=== PATIENT | female | born 1955 | race Caucasian/White ===

== ENCOUNTER 2016-11-05 21:03 | Emergency (ER) | payer BC ==
[~2016-11-05] VITALS: Ht 157.5 cm; Wt 110.4 kg
[~2016-11-05 21:03] MED LIST: ACET-1256 PO; ADVIN10/60 INH; ALBU1AER9 INH; AMOX500C3 PO; ASPEC81 PO; CALC-393 PO; CHOL100010 PO; CLC100 PO; GABA-112 PO; METO25TA56 PO; MISCCAP80 PO; MULTCHW PO; OXYSR10 PO; RXC5 PO; SNK PO; SYN175 PO; TROL10LO TOP
[2016-11-05 21:10] VITALS: TEMP 36.9; Ht 157.5 cm; Wt 110.4 kg
[2016-11-05] MEDS ORDERED: MoRPHine SULFATE 4 MG/ML 1 ML CARP\\VIAL IM STA (21:30)
--- NOTE | 2016-11-05 22:08 | DIAGNOSTIC IMAGING REPORT ---
LUMBAR SPINE 2 OR 3 VIEWS CLINICAL HISTORY: lower back pain s/p fall trauma COMPARISON STUDY: None FINDINGS: Findings consistent with a combination of degenerative and postoperative change. Findings of posterior laminectomy and fusion from L3 through L5. Degenerative disc changes throughout. No evidence for compression deformity. IMPRESSION: No acute bony abnormality. Degenerative and postoperative change The above report was generated using voice recognition software. It may contain grammatical, syntax or spelling errors. Electronically signed by: Joseph Goldman M.D. 11/05/2016 10:06 PM Dictated Date/Time: 11/05/2016 10:06 PM
--- NOTE | 2016-11-05 22:09 | DIAGNOSTIC IMAGING REPORT ---
PELVIS 1 OR 2 VIEW ROUTINE CLINICAL HISTORY: b/l hip pain pain COMPARISON: . Trauma. DISCUSSION: The bones and joint spaces appear intact. There is no evidence of fracture, dislocation or bony disease. There is no evidence for soft tissue swelling. IMPRESSION: No acute process. Degenerative and postoperative change. The above report was generated using voice recognition software. It may contain grammatical, syntax or spelling errors. Electronically signed by: Joseph Goldman M.D. 11/05/2016 10:07 PM Dictated Date/Time: 11/05/2016 10:07 PM
--- NOTE | 2016-11-05 22:09 | DIAGNOSTIC IMAGING REPORT ---
SACRUM COCCYX MIN 2 VIEWS CLINICAL HISTORY: fall trauma COMPARISON STUDY: None FINDINGS: Moderate degenerative change sacroiliac joints. No acute posttraumatic deformity or fracture right sacral foramina are symmetric. IMPRESSION: No acute process. Moderate degenerative change. The above report was generated using voice recognition software. It may contain grammatical, syntax or spelling errors. Electronically signed by: Joseph Goldman M.D. 11/05/2016 10:08 PM Dictated Date/Time: 11/05/2016 10:08 PM
[2016-11-05] MEDS ORDERED: ALBU18002 INH (22:51)
[2016-11-05] MEDS ORDERED: CHOL1000 PO (22:54)
[2016-11-05] MEDS ORDERED: CHOLTAB11 PO (22:54)
[2016-11-05] MEDS ORDERED: DOCU-94 PO (22:55)
[2016-11-05] MEDS ORDERED: ADVIN10/60 INH (22:56)
[2016-11-05] MEDS ORDERED: LEVO175T PO (22:58)
[2016-11-05] MEDS ORDERED: LEVO25TA5 PO (22:58)
[2016-11-05] MEDS ORDERED: VLT/50 PO (23:04)
[2016-11-05] MEDS ORDERED: DICL1GEL12 TOP (23:04)
[2016-11-06 01:01] VITALS: BP 123/93; PULSE 90; O2SAT 94
--- NOTE | 2016-11-06 01:25 | EMERGENCY ROOM VISIT NOTE ---
History Report prepared by Beto[place]marlin: Linda Ricks Under the Supervision of: Dr. Nino Fortune D.O. First contact with patient: 21:16 Chief Complaint: FALL Stated Complaint: FALL, TAILBONE PAIN/NUMBNESS IN BACKSIDE AND LEGS History of Present Illness The patient is a 61 year old female who presents to the Emergency Room with complaints of a fall that occurred yesterday around 1730. She reports she fell to the ground yesterday while trying to clean her porch, and landed on her buttocks, hitting her tailbone, right shoulder, right hip and bilateral knees. She also complains of some back pain, but notes she has a history of spinal fusion in 2010 and has undergone 2 knee replacements in the past. She denies hitting her head or losing consciousness. She notes she does have increased numbness around her knees. She notes that she gets this intermittently off and on secondary to her neuropathy and previous knee surgeries. She notes that it worsened following the fall but currently is at baseline. The patient also denies any headache, change in vision, fevers, chest pain, shortness of breath, nausea, vomiting, diarrhea, pain with urination, and melena. Source of History: patient Onset: 1729 yesterday Position: other (global) Quality: other (fall) Timing: resolved Associated Symptoms: + back pain, No LOC, No fevers, No headache, No chest pain, No SOB, No nausea, No vomiting, No melena, No diarrhea, No urinary symptoms Review of Systems See HPI for pertinent positives & negatives. A total of 10 systems reviewed and were otherwise negative. Past Medical & Surgical Medical Problems: (1) DJD (degenerative joint disease) (2) High cholesterol (3) History of migraine headaches (4) History of palpitations (5) HTN (hypertension) (6) Hypothyroidism (7) Neuropathy (8) Spinal stenosis Surgical Problems: (1) H/O cardiac catheterization (2) H/O umbilical hernia repair (3) H/O: (4) History of tubal ligation (5) Hx of cholecystectomy (6) S/P TKR (total knee replacement) (7) Status post lumbar spinal fusion Social History Smoking Status: Never Smoker Alcohol Use: none Drug Use: none Marital Status: Housing Status: lives with significant other Occupation Status: employed Current/Historical Medications Scheduled Amoxicillin (Amoxil), 2,000 MG PO UD Calcium Carbonate (Calcium), 600 MG PO QAM Cholecalciferol (D-5000), 1 TAB PO DAILY Cholecalciferol (Vitamin D3), 1,000 UNIT PO DAILY Fluticasone Prop/Salmeterol (Advair Diskus 100/50 60 Dose), 1 PUFF INH BID Gabapentin (Neurontin), 100 MG PO BID Levothyroxine Sodium (Synthroid), 175 MCG PO DAILY Levothyroxine Sodium (Levothyroxine Sodium), 25 MCG PO DAILY Metoprolol Tartrate (Lopressor) (Lopressor), 25 MG PO BID Multiple Vitamins W/ Minerals (Centrum Silver), 1 TAB PO QAM Scheduled PRN Acetaminophen (Tylenol), 1,000 MG PO TID PRN for RN Albuterol Sulfate (Proair Respiclick), 2 PUFFS INH QID PRN for SOB/Wheezing Diclofenac Sod (Voltaren), 50 MG PO TID PRN for Pain Diclofenac Sodium (Topical) (Voltaren 1% Top Gel), 1 APPLN TOP DAILY PRN for Pain Docusate Sodium (Colace), 100-300 MG PO DAILY PRN for Constipation Trolamine Salicylate (Aspercreme), 1 DOSE TOP DAILY PRN for Pain Allergies Coded Allergies: Sulfa Antibiotics (Verified Allergy, Mild, N/V, DIZZY, OUT OF IT, PHOTOPHOBIA, 10/06/15) Adhesives (Unverified Allergy, Unknown, REDNESS FROM BANDAIDS, 10/06/15) Statins (Unverified Allergy, Unknown, MUSCLE ACHES, 10/06/15) Ciprofloxacin (Unverified Adverse Reaction, Severe, vomited, 11/05/16) Hydrocodone (Verified Adverse Reaction, Mild, Nausea/vomiting, 10/06/15) Physical Exam Vital Signs Date Time Temp Pulse Resp B/P (MAP) Pulse Ox O2 Delivery O2 Flow Rate FiO2 11/06/16 01:01 90 20 123/93 94 11/05/16 22:51 93 18 133/84 94 Room Air 11/05/16 21:10 36.9 85 18 159/84 96 Room Air Physical Exam GENERAL: Patient is alert, well appearing, well nourished, no distress, non- toxic EYE EXAM: normal conjunctiva, PERRL and EOM's grossly intact OROPHARYNX: no exudate, no erythema, lips, buccal mucosa, and tongue normal and mucous membranes are moist NECK: supple, no nuchal rigidity, no adenopathy, non-tender LUNGS: Clear to auscultation. Normal chest wall mechanics BACK: Old lower lumbar scar with tenderness on palpation paraspinally and midline, tracking through the SI joints, bilateral gluteus muscles and bilateral hips. HEART: no murmurs, S1 normal and S2 normal ABDOMEN: abdomen soft, non-tender, normo-active bowel sounds, no masses, no rebound or guarding. BACK: Back is symmetrical on inspection and there is no deformity, no midline tenderness, no CVA tenderness. SKIN: no rashes and no bruising UPPER EXTREMITIES: upper extremities are grossly normal. LOWER EXTREMITIES: Flexion, extension of hip, knee, ankle and EHL 5/5 bilaterally, gross sensation intact, able to ambulate without difficulty. No pitting edema. NEURO EXAM: Normal sensorium, cranial nerves II-XII grossly intact, normal speech, no gross weakness of arms, no weakness of legs. No drift. Finger to nose intact. Gross sensation intact. Medical Decision & Procedures ER Provider Diagnostic Interpretation: Radiology results as stated below per my review and the radiologist's interpretation: SACRUM COCCYX MIN 2 VIEWS CLINICAL HISTORY: fall trauma COMPARISON STUDY: None FINDINGS: Moderate degenerative change sacroiliac joints. No acute posttraumatic deformity or fracture right sacral foramina are symmetric. IMPRESSION: No acute process. Moderate degenerative change. The above report was generated using voice recognition software. It may contain grammatical, syntax or spelling errors. Electronically signed by: Joseph Goldman M.D. 11/05/2016 10:08 PM LUMBAR SPINE 2 OR 3 VIEWS CLINICAL HISTORY: lower back pain s/p fall trauma COMPARISON STUDY: None FINDINGS: Findings consistent with a combination of degenerative and postoperative change. Findings of posterior laminectomy and fusion from L3 through L5. Degenerative disc changes throughout. No evidence for compression deformity. IMPRESSION: No acute bony abnormality. Degenerative and postoperative change The above report was generated using voice recognition software. It may contain grammatical, syntax or spelling errors. Electronically signed by: Joseph Goldman M.D. 11/05/2016 10:06 PM PELVIS 1 OR 2 VIEW ROUTINE CLINICAL HISTORY: b/l hip pain pain COMPARISON: . Trauma. DISCUSSION: The bones and joint spaces appear intact. There is no evidence of fracture, dislocation or bony disease. There is no evidence for soft tissue swelling. IMPRESSION: No acute process. Degenerative and postoperative change. The above report was generated using voice recognition software. It may contain grammatical, syntax or spelling errors. Electronically signed by: Joseph Goldman M.D. 11/05/2016 10:07 PM MRI L SPINE : Posterior fusion and intervertebral disc spacers L3-L5 and laminectomies at L3 and L4. Evaluation somewhat limited by hardware artifact. No evidence of acute fracture. T10-11 and T11-T12, small posterior disc bulges cause mild canal narrowing. T12- L1, posterior disc extrusion causes wqpw-ar-fjliqhgh canal narrowing. Axial images do not include these levels, limiting evaluation. L1-L2, posterior disc extrusion and facet arthropathy/ligamentous hypertrophy causes mild-tomoderate canal narrowing and mild bilateral foraminal narrowing. L2-L3, small posterior disc extrusion and facet arthropathy cause mild canal narrowing. L3-L4, no canal or foraminal stenosis. L4-L5, no canal or foraminal stenosis. L5-S1, disc osteophyte complex causes [id number]-vwhziybq foraminal narrowings. Radiologist: Benjy Ordonez MD Medications Administered Medications (Trade) Dose Ordered Sig/Ethel Route Start Time Stop Time Status Last Admin Dose Admin Morphine Sulfate (MoRPHine SULFATE INJ) 4 mg NOW STAT IM 11/05/16 21:30 11/05/16 21:33 DC 11/05/16 21:38 4 MG ED Course ED COURSE: Vital signs were reviewed and showed the patient is hypertensive. The patients medical record was reviewed The above diagnostic studies were performed and reviewed. ED treatments and interventions as stated above. 2121: The patient was evaluated in room C7. A complete history and physical examination was performed. 2130: Morphine Sulfate 4 mg IM. 0050: I discussed the patients MRI with the Stat Rad Radiologist. They note the MRI findings do not appear to be anything acute. 0055: Upon reevaluation, the patient is feeling better. I discussed my findings with the patient and she understands and agrees with the treatment plan. Based on the patients age, coexisting illnesses, exam and lab findings the decision to treat as an outpatient was made. The patient remained stable while under my care. The patient appeared well at the time of discharge. Medical Decision Medication Reconciliation: I attest that I have personally reviewed the patient' s current medication list. GCS of 15. Blood pressure screening: Patient was found to have an elevated blood pressure and was referred to their primary doctor for recheck and further treatment. Differential diagnoses include major intracranial, cervical, spinal, thoracic, abdominal, pelvic and neurologic injury. Fracture, contusion, sprain, strain, laceration, abrasions included as well. Patient is a 61-year-old female who presents the ER following a fall for lower back pain along with lateral hip pain. X-rays of her pelvis and lumbar were negative. She complained of intermittent worsening numbness around her knees which she notes has been present for years. She notes that it is currently at baseline. MRI was ordered with the fall and possible worsening numbness although difficult historian. MRI as discussed with the radiologist shows no acute pathology to suggest this. She was completely neurologically intact. She is discharged follow-up with her PCP. Discussed with Pt concerning signs and symptoms to watch out for. Pt was instructed to follow up with their PCP and discussed with the patient their option to return to the ED at anytime for persistent or worsening symptoms. The appropriate anticipatory guidance and out- patient management, including indications for return to the emergency department , were explained at length to the patient and understood. Impression Primary Impression: Back pain Additional Impressions: Fall Contusion of multiple sites Scribe Attestation The scribe's documentation has been prepared under my direction and personally reviewed by me in its entirety. I confirm that the note above accurately reflects all work, treatment, procedures, and medical decision making performed by me. Departure Information Dispostion Home / Self-Care Referrals No Doctor, Assigned (PCP) Patient Instructions Back Pain - [facility], [facility] Additional Instructions Please follow up with your primary care doctor with in the next 24 hours. Any worsening of your symptoms, please return to the ED immediately. This includes weakness or numbness in arms or legs, inability to walk, numbness in your groin , inability to move her bowels, or any other concerning signs or symptoms from your standpoint. Please take Motrin or Tylenol as needed for pain. Problem Qualifiers Primary Impression: Back pain Back pain location: low back pain Chronicity: acute Back pain laterality: midline Sciatica presence: without sciatica Qualified Codes: M54.5 - Low back pain Additional Impressions: Fall Encounter type: initial encounter Qualified Codes: W19.XXXA - Unspecified fall, initial encounter
--- NOTE | 2016-11-06 05:56 | DIAGNOSTIC IMAGING REPORT ---
LUMBAR SPINE W/O CONTRAST HISTORY: Trauma neuropathy TECHNIQUE: Multiplanar multisequence MRI of the lumbar spine was performed without the use of contrast. COMPARISON: None. FINDINGS: For the purpose of the report the L5-S1 disc space will be located on axial image 27 of 30. Findings consistent with posterior fusion and laminectomy from L3 through L5. Moderate degenerative disc change throughout the entire lumbar region. T12-L1: Mild broad-based disc bulge. L1-L2: Broad-based bulging disc. Moderate degenerative change posterior elements. Mild multifactorial narrowing of the spinal canal. L2-L3: Broad-based bulging disc with moderate narrowing of the neuroforamina bilaterally. L3-L4: Posterior laminectomy and fusion. No disc herniation or spinal stenosis. L4-L5: Posterior laminectomy and fusion. No significant disc herniation or spinal stenosis. L5-S1: Mild broad-based disc bulge. Mild narrowing of the left and to lesser extent right neuroforamina. IMPRESSION: 1. Postoperative changes consistent with posterior laminectomy and fusion from L3 through L5. 2. Moderate degenerative disc change. 3. Broad-based bulging discs with mild narrowing of the spinal canal at L1-L2, T12-L1, and L2-L3. 4. Broad-based bulging disc L5-S1 with mild narrowing of the neuroforamina The above report was generated using voice recognition software. It may contain grammatical, syntax or spelling errors. Electronically signed by: Joseph Goldman M.D. 11/06/2016 5:55 AM Dictated Date/Time: 11/06/2016 5:50 AM
== END 2016-11-06 01:02 | disposition home or self-care (01) ==
LOC: C.EDB 21:05 → C.EDC 11-06 01:02
DX: M54.5 Low back pain (principal); T14.8 Other injury of unspecified body region; W19.XXXA Unspecified fall, initial encounter; Z98.1 Arthrodesis status; Z96.659 Presence of unspecified artificial knee joint; G62.9 Polyneuropathy, unspecified; E78.00 Pure hypercholesterolemia, unspecified; I10 Essential (primary) hypertension; E03.9 Hypothyroidism, unspecified; Z98.51 Tubal ligation status; Z90.49 Acquired absence of other specified parts of digestive tract; Z79.899 Other long term (current) drug therapy

== ENCOUNTER → 2017-06-15 | Outpatient (CLI) | payer BC ==
[~2017-06-15] MED LIST changes: +ALBU18002 INH; -ALBU1AER9 INH; -ASPEC81 PO; +CHOL1000 PO; -CHOL100010 PO; +CHOLTAB11 PO; -CLC100 PO; +DICL1GEL12 TOP; +DOCU-94 PO; +LEVO175T PO; +LEVO25TA5 PO; -MISCCAP80 PO; -OXYSR10 PO; -RXC5 PO; -SNK PO; -SYN175 PO; +VLT/50 PO
--- NOTE | 2017-06-15 12:54 | DIAGNOSTIC IMAGING REPORT ---
CT SCAN OF THE LUMBAR SPINE WITHOUT IV CONTRAST CLINICAL HISTORY: Chronic low back pain. Lumbar radiculopathy. History of spinal surgery. COMPARISON STUDY: Radiographs and MRI of the lumbar spine dated 11/05/2016. TECHNIQUE: CT scan of the lumbar spine is performed from the lower thoracic spine to the sacrum. Images are reviewed in the axial, sagittal, and coronal planes. IV contrast was not administered for this examination. The examination is degraded by metallic streak artifact from spinal orthopedic hardware. A dose lowering technique was utilized adhering to the principles of ALARA. CT DOSE: 781.50 mGy.cm FINDINGS: Lumbar spine: The skeletal structures are osteopenic. There are mild chronic superior endplate compression deformities of T12, L2, and L3. These were also seen by MRI on 11/05/2016. There is no evidence of acute fracture or malalignment. Vertebral body height is otherwise maintained throughout the lumbar spine. Alignment is preserved. There are postoperative changes from laminectomy and posterior fusion seen from L3 to L5. Interpedicular screws are present at all levels. The orthopedic hardware appears intact. The transverse processes are intact as visualized. No lytic or blastic lesion is seen. Intervertebral discs: There has been discectomy at L3-L4 and L4-L5. Moderate disc space narrowing is seen at L5-S1. Mild disc space narrowing is seen at the remaining lumbar levels. Moderate narrowing is also seen at T12-L1. T11-T12: A tiny posterior disc osteophyte complex is observed. There is no significant central canal stenosis. T12-L1: There is a large posterior dis osteophyte complex at this level. This causes [id number]-uq-jvyvcmkr central canal stenosis with a minimum AP diameter of 9 mm. The neural foramina appear patent. L1-L2: There is a large posterior disc osteophyte complex eccentric to the left. This causes moderate central canal stenosis with a minimum AP canal diameter of 7 mm. Facet arthropathy causes mild left-sided neural foraminal stenosis. L2-L3: There is a small posterior disc osteophyte complex. There is no significant acquired compromise of the central canal. Facet arthropathy causes mild left-sided neural foraminal stenosis. L3-L4: The central canal appears patent. Facet arthropathy causes mild left-sided neural foraminal stenosis. L4-L5: The central canal and neural foramina are grossly clear. L5-S1: A disc osteophyte complex eccentric to the left causes left-sided subarticular stenosis and may abut the exiting left L5 nerve root. The central canal appears clear. Sacrum: The visualized sacrum and bony pelvis appear intact. Degenerative change and vacuum phenomenon is noted in the sacroiliac joints. Soft tissues: There is fatty atrophy of the paraspinous musculature. Woyk-an-qmibufjz atherosclerotic calcification is seen in the abdominal aorta. The kidneys demonstrate cortical atrophy. IMPRESSION: 1. No acute bony abnormality is seen involving the lumbar spine. 2. Chronic compression deformities of T12, L2, and L3 are again noted. 3. Spondylotic and postoperative change as above. See discussion for detailed analysis. Dictated: 06/15/2017 12:13 PM Transcribed: 06/15/2017 12:54 PM Sarah Electronically signed by: Brandon Jamil M.D. 06/15/2017 1:11 PM Dictated Date/Time: 06/15/2017 12:13 PM
== END | disposition home or self-care (01) ==
LOC: C.CTS 11:50
PROVIDERS: ATTEND Physician Assistant
DX: M54.16 Radiculopathy, lumbar region (principal)